=== PATIENT | male | born 1945 | race Caucasian/White ===

== ENCOUNTER 2016-08-19 23:58 | Inpatient (IN) | payer OTHER ==
[~2016-08-19] VITALS: Ht 188 cm; Wt 113.4 kg
--- NOTE | ~2016-08-19 | EKG ---
[address] [place] [address] ELECTROCARDIOGRAM REPORT Name: YASMIN JIMENEZ Room #: 315-P ADM IN M.R.#: [id number] Admission: 08/20/16 Attend Phys: Erum Leiva Discharge: Date of : 43 Report #: [id number] THIS REPORT FOR: //name// [facility] Test Date: 2016-08-21 Test Time: 07:40:12 Pat Name: YASMIN JIMENEZ Department: Room: 315 P Gender: M Development Officer: SHIVA : 1945 Requested By: Hany Posadas Order Number: [id number] MD: Hany Posadas Measurements Intervals [place] Rate: 67 P: 0 MI: 148 QRS: 5 QRSD: 142 T: 66 QT: 491 QTc: 519 Interpretive Statements Atrial fibrillation Poor R-wave progression Nonspecific intraventricular conduction delay Nonspecific T wave abnormality no previous ECGs available for comparison Electronically Signed On 08-22-2016 12:31:14 CDT by Hany Posadas [email or web address] <ELECTRONICALLY SIGNED> By: Hany Posadas MD, [facility] 08/22/16 1231 0740 9 Hany Posadas MD, FACC /EPI
[~2016-08-19 23:58] MED LIST: ADULT LOW DOSE81 MG PO; ALLOPURINOL 30300 M2 PO; ASPIR 8181 MG PO; ATENOLOL 50MG T50 M1 PO; ATENOLOL 50MG T50 MG PO; ATORVASTATIN CA40 MG PO; AUGMENTIN 875875 MG PO; BACTRIM DS TAB1 EACH PO; BAYER CHEWABLE81 MG PO; BETASEPT 4% SU120 M1 TP; BIOTIN-D1 GM MC; CALCIO DEL MAR PO; CALCIUM 600 +1 EAC1 PO; CARAFATE 1 GM TA1 G1 PO; CARVEDILOL3.125 MG PO; CARVEDILOL6.25 MG PO; CLEOCIN HCL150 MG PO; COZAAR 25 MG TA25 M1 PO; COZAAR 50 MG TA50 M1 PO; COZAAR 50 MG TA50 M2 PO; DAPSONE100 MG PO; DOXYCYCLINE 10100 M1 PO; DOXYCYCLINE 10100 MG PO; ELIQUIS2.5 MG PO; ETODOLAC500 MG PO; FERREX 150150 MG PO; FISH OIL 1,001000 M2 PO; FLOMAX0.4 MG PO; FLONASE 0.05%50 MCG NASAL; GENTAMICIN 0.15 CR TRANSDERM; HIBICLENS120 ML TP; HYDROCERIN CREA1 JAR TOP; HYDROCODONE-AP1 EAC6 PO; HYDROCODONE-AP1 EACH PO; HYDROCORTISONE30 G9 RECTAL; IMDUR 30 MG TAB30 M1 PO; ISOSORBIDE DINI30 MG PO; KLOR-CON 1010 MEQ PO; LASIX 20 MG TAB20 MG PO; LIPITOR10 MG PO; LISINOPRIL10 MG PO; LISINOPRIL5 MG PO; MUPIROCIN15 GM TOP; NORCO 10-325 T1 EACH PO; NORCO 5-325 TA1 EACH PO; NORVASC10 MG PO; NYAMYC15 GM TOP; OXYCODONE HCL 55 MG PO; PACERONE 200 M200 M1 PO; PAXIL10 MG PO; PERCOCET PO; POTASSIUM20 PO; PROAIR HFA8.5 GM INH; PROBIOTIC1 EAC1 PO; PROTONIX40 M1 PO; REGLAN 10 MG TA10 MG PO; SAVAYSA60 MG PO; SENNA LAXATIVE8.6 MG PO; TORSEMIDE20 MG PO; TRIAMCINOLONE A80 G2; XARELTO10 MG PO; XOPENEX 0.63 MG/3 M1 INH; ZANTAC 150MG T150 MG PO; ZANTAC300 MG PO; ZOCOR20 MG PO; ZOFRAN ODT4 MG PO
[2016-08-20] MEDS ORDERED: K-DUR10 MEQ PO (00:10)
[2016-08-20] MEDS ORDERED: AMIODARONE HCL400 MG PO (00:10)
[2016-08-20] MEDS ORDERED: NORCO 10-325 T1 EACH PO (00:10)
[2016-08-20] MEDS ORDERED: BUMETANIDE 1 MG1 M1 GT (00:10)
[2016-08-20] MEDS ORDERED: CARVEDILOL6.25 MG PO (00:10)
[2016-08-20] MEDS ORDERED: METOLAZONE 5 MG5 MG PO (00:11)
[2016-08-20] MEDS ORDERED: DEMADEX20 MG PO (00:11)
[2016-08-20 00:51] LABS: ABSOLUTE NEUTROPHILS 5.2 thou/uL (1.4-8.2); BASOPHILS 0.8 % (0.0-2.0); EOSINOPHILS 5.1 % (0.0-3.0); HEMATOCRIT 24.2 % (42.0-52.0); HEMOGLOBIN 7.7 gm/dL (14.0-18.0); LYMPHOCYTES 12.2 % (24.0-44.0); MCH 29.5 pg (26.0-34.0); MCHC 31.7 g/dL (28.0-37.0); MONOCYTES 8.8 % (1.0-8.0); PLATELET COUNT 180 thou/uL (150-400); POLYS 73.1 % (36.0-66.0); RDW 21.1 % (10.5-14.5); WBC 7.1 thou/uL (4.0-11.0)
[2016-08-20 00:57] LABS: MANUAL DIFF NO
[2016-08-20 01:03] LABS: APTT 35.7 Seconds (24.5-32.8); INR 1.2; PROTIME 12.4 Seconds (9.3-11.4)
[2016-08-20 01:13] LABS: POTASSIUM 4.5 mmol/L (3.5-5.1)
[2016-08-20 01:14] LABS: CREATININE 1.5 mg/dL (0.6-1.3)
[2016-08-20 01:15] LABS: ALBUMIN 2.2 g/dL (3.4-5.0); CALCIUM 7.6 mg/dL (8.5-10.1); TOTAL BILIRUBIN 0.5 mg/dL (<0.1-1.0); TOTAL PROTEIN 6.4 g/dL (6.4-8.2)
[2016-08-20 01:21] LABS: DIRECT BILIRUBIN 0.2 mg/dL (<0.1-0.3)
[2016-08-20 02:05] LABS: URINE BILIRUBIN NEGATIVE (Negative); URINE BLOOD 3+ (Negative); URINE COLOR YELLOW; URINE GLUCOSE-RANDOM* NEGATIVE (Negative); URINE KETONES NEGATIVE (Negative); URINE NITRITE NEGATIVE (Negative); URINE PROTEIN (DIPSTICK) NEGATIVE (Negative); URINE UROBILINOGEN 0.2 E.U./dl (0.2-1.0)
[2016-08-20 02:10] LABS: SQUAMOUS 0-3 Few /LPF (0-3)
[2016-08-20 02:11] LABS: BACTERIA 1-9 Few /HPF (None Seen); CRYSTALS None Seen /LPF (None Seen); HYALINE CASTS 0-3 Few /LPF (None Seen); URINE RBC >20 Many /HPF (0-2); URINE WBC 0-5 Rare /HPF (0-5)
[2016-08-21 03:43] LABS: HEMATOCRIT 26.3 % (42.0-52.0); HEMOGLOBIN 8.6 gm/dL (14.0-18.0); MCH 29.3 pg (26.0-34.0); MCHC 32.6 g/dL (28.0-37.0); MCV 89.9 fL (80.0-100.0); RBC 2.93 mil/uL (4.50-6.00); RDW 20.5 % (10.5-14.5); WBC 5.9 thou/uL (4.0-11.0)
[2016-08-21 03:57] LABS: APTT 35.5 Seconds (24.5-32.8); INR 1.2; PROTIME 12.7 Seconds (9.3-11.4)
[2016-08-21 04:00] LABS: ALBUMIN 2.2 g/dL (3.4-5.0); CALCIUM 7.9 mg/dL (8.5-10.1); CREATININE 1.4 mg/dL (0.6-1.3); PHOSPHORUS 3.3 mg/dL (2.5-4.9); POTASSIUM 4.6 mmol/L (3.5-5.1)
[2016-08-22 06:15] LABS: HEMATOCRIT 26.7 % (42.0-52.0); HEMOGLOBIN 8.9 gm/dL (14.0-18.0); MCH 30.3 pg (26.0-34.0); MCHC 33.3 g/dL (28.0-37.0); MCV 90.9 fL (80.0-100.0); RBC 2.94 mil/uL (4.50-6.00); WBC 5.7 thou/uL (4.0-11.0)
[2016-08-22 06:29] LABS: ALBUMIN 2.2 g/dL (3.4-5.0); CALCIUM 7.9 mg/dL (8.5-10.1); CREATININE 1.3 mg/dL (0.6-1.3); PHOSPHORUS 3.5 mg/dL (2.5-4.9)
[2016-08-23 05:44] LABS: ABSOLUTE NEUTROPHILS 4.2 thou/uL (1.4-8.2); BASOPHILS 1.2 % (0.0-2.0); EOSINOPHILS 7.4 % (0.0-3.0); HEMATOCRIT 24.8 % (42.0-52.0); HEMOGLOBIN 8.3 gm/dL (14.0-18.0); LYMPHOCYTES 12.8 % (24.0-44.0); MCH 30.2 pg (26.0-34.0); MCHC 33.4 g/dL (28.0-37.0); MCV 90.3 fL (80.0-100.0); MONOCYTES 8.8 % (1.0-8.0); PLATELET COUNT 172 thou/uL (150-400); POLYS 69.8 % (36.0-66.0); RBC 2.75 mil/uL (4.50-6.00)
[2016-08-23 05:55] LABS: MANUAL DIFF NO
[2016-08-23 06:09] LABS: CALCIUM 7.7 mg/dL (8.5-10.1); CREATININE 1.3 mg/dL (0.6-1.3); POTASSIUM 3.7 mmol/L (3.5-5.1); TOTAL BILIRUBIN 0.5 mg/dL (<0.1-1.0); TOTAL PROTEIN 5.9 g/dL (6.4-8.2)
[2016-08-24] MEDS ORDERED: AUGMENTIN 875875 MG PO (13:38)
[2016-08-24] MEDS ORDERED: MICONAZOLE NITR45 G3 TOP (13:40)
[2016-08-24] MEDS ORDERED: SSD CREAM 1% 5050 GM TOP (13:40)
[2016-08-24 14:11] LABS: HEMATOCRIT 25.5 % (42.0-52.0); HEMOGLOBIN 8.3 gm/dL (14.0-18.0)
== END 2016-08-24 17:09 | DRG 592 ==
LOC: ER 23:58 → EROBS 08-20 02:22 → 3N 08-20 02:22
PROVIDERS: Emergency Medicine; Hospitalist; Internal Medicine; Nurse Practitioner Family
PROC: 30233N1 Transfusion of Nonautologous Red Blood Cells into Peripheral Vein, Percutaneous Approach (ICD-10-PCS; principal; 2016-08-20)
DX: L97.929 Non-pressure chronic ulcer of unspecified part of left lower leg with unspecified severity (principal); E43 Unspecified severe protein-calorie malnutrition; D62 Acute posthemorrhagic anemia; D68.59 Other primary thrombophilia; I13.0 Hypertensive heart and chronic kidney disease with heart failure and stage 1 through stage 4 chronic kidney disease, or unspecified chronic kidney disease; I50.32 Chronic diastolic (congestive) heart failure; N17.9 Acute kidney failure, unspecified; L97.919 Non-pressure chronic ulcer of unspecified part of right lower leg with unspecified severity; I25.10 Atherosclerotic heart disease of native coronary artery without angina pectoris; K59.00 Constipation, unspecified; I95.9 Hypotension, unspecified; I48.91 Unspecified atrial fibrillation; I73.9 Peripheral vascular disease, unspecified; N18.3 Chronic kidney disease, stage 3 (moderate); R31.0 Gross hematuria; L89.622 Pressure ulcer of left heel, stage 2; L89.322 Pressure ulcer of left buttock, stage 2; I87.2 Venous insufficiency (chronic) (peripheral); Z95.5 Presence of coronary angioplasty implant and graft; Z95.1 Presence of aortocoronary bypass graft; Z88.6 Allergy status to analgesic agent; Z79.82 Long term (current) use of aspirin; Z79.899 Other long term (current) drug therapy; Z95.2 Presence of prosthetic heart valve; Z83.3 Family history of diabetes mellitus; Z82.49 Family history of ischemic heart disease and other diseases of the circulatory system; Z82.3 Family history of stroke; Z80.9 Family history of malignant neoplasm, unspecified; Z68.32 Body mass index [BMI] 32.0-32.9, adult
CPT/HCPCS: 10096; 23012

== ENCOUNTER → 2016-10-11 | Outpatient (CLI) | payer OTHER ==
[~2016-10-11] MED LIST changes: +AMIODARONE HCL400 MG PO; +BUMETANIDE 1 MG1 M1 GT; +DEMADEX20 MG PO; +K-DUR10 MEQ PO; +METOLAZONE 5 MG5 MG PO; +MICONAZOLE NITR45 G3 TOP; +SSD CREAM 1% 5050 GM TOP
== END ==
LOC: HYPER 07:10
DX: S81.801A Unspecified open wound, right lower leg, initial encounter (principal); I13.0 Hypertensive heart and chronic kidney disease with heart failure and stage 1 through stage 4 chronic kidney disease, or unspecified chronic kidney disease; N18.9 Chronic kidney disease, unspecified; I50.20 Unspecified systolic (congestive) heart failure; I25.10 Atherosclerotic heart disease of native coronary artery without angina pectoris; L03.115 Cellulitis of right lower limb; I25.5 Ischemic cardiomyopathy; I48.91 Unspecified atrial fibrillation; X58.XXXA Exposure to other specified factors, initial encounter; Y93.89 Activity, other specified; Y92.89 Other specified places as the place of occurrence of the external cause; Y99.8 Other external cause status

== ENCOUNTER → 2017-01-03 | Outpatient (CLI) | payer OTHER ==
[~2017-01-03] VITALS: Ht 188 cm; Wt 101.2 kg
[~2017-01-03] MED LIST changes: +CARVEDILOL12.5 MG PO; +CENTRUM SILVER1 EAC2 PO
--- NOTE | ~2017-01-03 | P ---
[facility] [place] [address] PROCEDURE REPORT Name: YASMIN JIMENEZ Room #: REG [facility]#: [id number] Admission: 01/03/17 Attend Phys: Mt Freed MD Discharge: Date of : 43 Report #: [id number] THIS REPORT FOR: //name// CC: Dr. Sameer AGRAWAL physician/PCP Mt Freed BRIEF HISTORY: The patient is a 71-year-old male who underwent a colonoscopy about a year ago because of bleeding and anemia. A bleeding site was not identified, it was felt the blood was likely coming from the anal canal. However, due to limitations of prep, followup colonoscopy was suggested for colorectal screening. PREOPERATIVE DIAGNOSIS: Average risk screening colonoscopy. POSTOPERATIVE DIAGNOSES: 1. Moderately severe left-sided diverticulosis with few scattered diverticula in the proximal colon. 2. Deformity of ascending colon. MEDICATIONS: Deep sedation with propofol per anesthesia. SPECIMEN: None. ESTIMATED BLOOD LOSS: None. PROCEDURE: Colonoscopy to cecum and terminal ileum. FINDINGS: Prior to propofol sedation, procedure of colonoscopy discussed with the patient as well as potential risks, benefits, and complications. He indicates he understands and desires to proceed. With the patient in left lateral decubitus position, digital examination was completed, which revealed no abnormalities. Subsequently, the fromAtoB video colonoscope was introduced in the rectum, advanced under direct vision to the cecum. Done with minimal difficulty. The cecum was identified by the ileocecal valve and the appendiceal orifice. Interestingly, the mouth of the ileocecal valve was easily visible from the ascending colon. It almost had an eccentric appearance. It was not obstructed. The scope was advanced easily into the distal terminal ileum and normal villous pattern was identified. Also, the appendiceal orifice was well seen. At that point, the scope was withdrawn and careful circumferential views obtained. Upon slow withdrawal of the scope, the prep was noted to be excellent. The mucosa was within normal limits, normal vascular pattern, normal light reflex. As we withdrew the scope, there were noted to be diverticular disease in the ascending colon, there was also noted to be scarring thought to be related to previous inflammatory process, although active inflammatory disease was not seen today. It is noted he does have [facility] [address] [place] [address] PROCEDURE REPORT Name: YASMIN JIMENEZ Room #: REG [facility].#: [id number] Admission: 01/03/17 Attend Phys: Mt Freed MD Discharge: Date of : 43 Report #: [id number] vascular disease and I would wonder if he had previous . As we withdrew the scope, the prep was normal throughout the remainder of the colon, inflammatory changes were not seen elsewhere in the colon. In the left colon, in particular the sigmoid colon, there was moderately severe diverticular disease without endoscopic evidence of diverticulitis. Scope was withdrawn in the rectum. Upon retroflexion, no abnormalities were seen. Scope was withdrawn. The patient tolerated the procedure well. CONDITION OF THE PATIENT UPON DISCHARGE: Following procedure, the patient drowsy, aroused, conversant and will be discharged home when fully ambulatory. INSTRUCTIONS TO THE PATIENT AND FAMILY AT THE TIME OF DISCHARGE: I do not see evidence of neoplastic disease to consider the patient average risk. Suggest followup colonoscopy in 10 years and certainly would base that on his clinical health at that point in time and suggest high fiber diet for the diverticular disease. He will return to the care of Dr. Craft and return to see me as needed. Withdrawal time from the cecum was 15 minutes. <ELECTRONICALLY SIGNED> By: Mt Freed MD 01/04/17 0744 1001 1722 Mt Freed MD /nt
== END ==
LOC: GI 07:11
DX: Z12.11 Encounter for screening for malignant neoplasm of colon (principal); K57.30 Diverticulosis of large intestine without perforation or abscess without bleeding; K29.70 Gastritis, unspecified, without bleeding; I50.21 Acute systolic (congestive) heart failure; I25.10 Atherosclerotic heart disease of native coronary artery without angina pectoris; I48.91 Unspecified atrial fibrillation; N19 Unspecified kidney failure; Z88.5 Allergy status to narcotic agent; Z79.899 Other long term (current) drug therapy
CPT/HCPCS: 62110; 62900

== ENCOUNTER → 2017-04-25 | Outpatient (CLI) | payer OTHER | LOC: HYPER 07:37 | DX: L97.212 Non-pressure chronic ulcer of right calf with fat layer exposed (principal); I48.91 Unspecified atrial fibrillation; I25.10 Atherosclerotic heart disease of native coronary artery without angina pectoris; N18.9 Chronic kidney disease, unspecified; Z95.1 Presence of aortocoronary bypass graft ==

== ENCOUNTER → 2017-05-03 | Outpatient (CLI) | payer OTHER | LOC: HYPER 06:46 | DX: L97.212 Non-pressure chronic ulcer of right calf with fat layer exposed (principal); I48.91 Unspecified atrial fibrillation; I25.10 Atherosclerotic heart disease of native coronary artery without angina pectoris; Z95.1 Presence of aortocoronary bypass graft ==

== ENCOUNTER → 2017-06-15 | Outpatient (CLI) | payer OTHER | LOC: HYPER 06:54 | DX: L97.212 Non-pressure chronic ulcer of right calf with fat layer exposed (principal); R60.0 Localized edema; I48.91 Unspecified atrial fibrillation; I25.10 Atherosclerotic heart disease of native coronary artery without angina pectoris; Z95.1 Presence of aortocoronary bypass graft ==

== ENCOUNTER → 2017-07-13 | Outpatient (CLI) | payer OTHER | LOC: HYPER 06:48 | DX: S80.861D Insect bite (nonvenomous), right lower leg, subsequent encounter (principal); L97.212 Non-pressure chronic ulcer of right calf with fat layer exposed; R60.0 Localized edema; I48.91 Unspecified atrial fibrillation; I25.10 Atherosclerotic heart disease of native coronary artery without angina pectoris; Z95.1 Presence of aortocoronary bypass graft; X58.XXXD Exposure to other specified factors, subsequent encounter ==

== ENCOUNTER → 2017-08-08 | Outpatient (CLI) | payer OTHER | LOC: HYPER 08-04 08:37 | DX: L97.212 Non-pressure chronic ulcer of right calf with fat layer exposed (principal); S80.861D Insect bite (nonvenomous), right lower leg, subsequent encounter; I48.91 Unspecified atrial fibrillation; I25.10 Atherosclerotic heart disease of native coronary artery without angina pectoris; Z95.0 Presence of cardiac pacemaker; W57.XXXD Bitten or stung by nonvenomous insect and other nonvenomous arthropods, subsequent encounter ==

== ENCOUNTER → 2017-08-24 | Outpatient (CLI) | payer OTHER | LOC: HYPER 06:48 | DX: L97.212 Non-pressure chronic ulcer of right calf with fat layer exposed (principal); S80.872D Other superficial bite, left lower leg, subsequent encounter; I48.91 Unspecified atrial fibrillation; I25.10 Atherosclerotic heart disease of native coronary artery without angina pectoris; Z95.1 Presence of aortocoronary bypass graft; W57.XXXD Bitten or stung by nonvenomous insect and other nonvenomous arthropods, subsequent encounter ==

== ENCOUNTER → 2017-09-07 | Outpatient (CLI) | payer OTHER | LOC: HYPER 07:06 | DX: L97.212 Non-pressure chronic ulcer of right calf with fat layer exposed (principal); S80.861D Insect bite (nonvenomous), right lower leg, subsequent encounter; S81.802D Unspecified open wound, left lower leg, subsequent encounter; I48.91 Unspecified atrial fibrillation; I25.10 Atherosclerotic heart disease of native coronary artery without angina pectoris; Z95.1 Presence of aortocoronary bypass graft; X58.XXXD Exposure to other specified factors, subsequent encounter ==

== ENCOUNTER → 2017-09-21 | Outpatient (CLI) | payer OTHER | LOC: HYPER 06:44 | DX: S81.802D Unspecified open wound, left lower leg, subsequent encounter (principal); S80.861D Insect bite (nonvenomous), right lower leg, subsequent encounter; L97.212 Non-pressure chronic ulcer of right calf with fat layer exposed; R60.0 Localized edema; I48.91 Unspecified atrial fibrillation; I25.10 Atherosclerotic heart disease of native coronary artery without angina pectoris; Z95.1 Presence of aortocoronary bypass graft; X58.XXXD Exposure to other specified factors, subsequent encounter ==

== ENCOUNTER → 2017-10-19 | Outpatient (CLI) | payer OTHER | LOC: HYPER 06:51 | DX: L97.212 Non-pressure chronic ulcer of right calf with fat layer exposed (principal); S80.861D Insect bite (nonvenomous), right lower leg, subsequent encounter; L03.116 Cellulitis of left lower limb; I25.10 Atherosclerotic heart disease of native coronary artery without angina pectoris; I48.91 Unspecified atrial fibrillation; Z95.1 Presence of aortocoronary bypass graft; W57.XXXD Bitten or stung by nonvenomous insect and other nonvenomous arthropods, subsequent encounter ==

== ENCOUNTER → 2017-11-09 | Outpatient (CLI) | payer OTHER | LOC: HYPER 07:04 | DX: S80.861D Insect bite (nonvenomous), right lower leg, subsequent encounter (principal); L97.212 Non-pressure chronic ulcer of right calf with fat layer exposed; I48.91 Unspecified atrial fibrillation; I25.10 Atherosclerotic heart disease of native coronary artery without angina pectoris; Z95.1 Presence of aortocoronary bypass graft; W57.XXXD Bitten or stung by nonvenomous insect and other nonvenomous arthropods, subsequent encounter ==

== ENCOUNTER → 2017-11-30 | Outpatient (CLI) | payer OTHER | LOC: HYPER 06:49 | DX: L97.212 Non-pressure chronic ulcer of right calf with fat layer exposed (principal); I48.91 Unspecified atrial fibrillation; I25.10 Atherosclerotic heart disease of native coronary artery without angina pectoris; Z95.1 Presence of aortocoronary bypass graft ==

== ENCOUNTER → 2017-12-07 | Outpatient (CLI) | payer OTHER ==
--- NOTE | ~2017-12-07 | 2DMMODE ---
[facility] [address] [place] [address] 2 D/M-MODE ECHOCARDIOGRAM Name: TONYYASMIN THOMAS Room #: REG [facility]#: [id number] Admission: 12/07/17 Attend Phys: Missael Cooney Discharge: Date of : 43 Date of Service: 12/07/17 1412 Report #: [id number] THIS REPORT FOR: //name// APPROVED REPORT Study performed: 12/07/2017 12:32:35 EXAM: Comprehensive 2D, Doppler, and color-flow Echocardiogram Patient Location: Echo lab Status: routine BSA: 2.37 HR: 75 bpm BP: 115/78 mmHg Other Information Study Quality: Good Indications Atrial Fibrillation [place]: MVR and ABR 2D Dimensions LVEF(%): 52.75 (>50%) IVSd: 14.68 (7-11mm) LVOT Diam: 22.42 (18-24mm) LVDd: 56.15 mm PWd: 14.68 (7-11mm) Ascending Ao: 36.40 (22-36mm) LVDs: 40.73 (25-40mm) Aortic Root: 32.11 mm IVC: 3.20 mm Cali's LVEF: 52.75 % Aortic Valve AoV Peak Gen.: 2.15 m/s AO Peak Gr.: 18.57 mmHg LVOT Max P.87 mmHg AO Mean Gr.: 8.22 mmHg LVOT Mean P.26 mmHg AO V2 Mean: 1.30 m/s LVOT Max V: 0.85 m/s AO V2 VTI: 40.77 cm LVOT Mean V: 0.48 m/s SAM (VTI): 1.37 cm2 LVOT V1 VTI: 14.17 cm SAM Vmax: 1.55 cm2 SV (LVOT): 55.91 mL Mitral Valve MV Peak Gr.: 20.25 mmHg MV Mean Gr.: 8.39 mmHg MV Max Gen.: 2.25 m/s [facility] [address] [employer] [place] [address] 2 D/M-MODE ECHOCARDIOGRAM Name: YASMIN JIMENEZ Room #: REG [facility].#: [id number] Admission: 12/07/17 Attend Phys: Missael Cooney Discharge: Date of : 43 Date of Service: 12/07/17 1412 Report #: [id number] MV Mean Gen.: 1.31 m/s MV VTI: 533.43 mm MVA VTI: 104.81 mm2 MV PHT: 107.79 ms MVA (PHT): 2.04 cm2 Pulmonary Valve PV Peak Gen.: 0.66 m/s PV Peak Gr.: 1.77 mmHg Tricuspid Valve TR Peak Gen.: 3.05 m/s RAP Estimate: 15.00 mmHg TR Peak Gr.: 37.29 mmHg PA Pressure: 52.00 mmHg Left Ventricle The left ventricle is normal size. There is normal left ventricular wall thickness. The left ventricular systolic function is normal. LVEF is 50%. This study is not technically sufficient to allow evaluation of the LV diastolic function due to atrial fibrillation. Right Ventricle The right ventricle is normal size. The right ventricular systolic function is normal. Pacemaker lead is present in the right ventricle. Atria Left atrium is dilated. Right atrium is dilated. Pacemaker lead is present in the right atrium. Aortic Valve [facility] 25mm. Bioprosthetic aortic valve is present. Mild aortic regurgitation. There is no aortic valvular stenosis. Mitral Valve [facility] 33mm. Bioprosthesis valve Mild mitral regurgitation. Mildly mitral stenosis. Tricuspid Valve The tricuspid valve is normal in structure. Doppler gradients for this tricuspid prosthetic valve are normal. There ismoderate to severe tricuspid regurgitation. There is no pulmonary hypertension. Pulmonic Valve The pulmonary valve is normal in structure. Trace pulmonic regurgitation. [address] [address] 2 D/M-MODE ECHOCARDIOGRAM Name: TONYYASMIN THOMAS Room #: REG [facility]#: [id number] Admission: 12/07/17 Attend Phys: Missael Cooney Discharge: Date of : 43 Date of Service: 12/07/17 1412 Report #: [id number] Great Vessels The aortic root is normal in size. The ascending aorta is normal in size. The inferior vena cava is dilated with no inspiratory collapse. Pericardium There is no pericardial effusion. <Conclusion> The left ventricle is normal size. LVEF is 50%. Pacemaker lead is present in the right ventricle. Left atrium is dilated. Right atrium is dilated. Pacemaker lead is present in the right atrium. [facility] 25mm. Bioprosthetic aortic valve is present. Mild aortic regurgitation. [facility] 33mm. Bioprosthesis valve Mild mitral regurgitation. Mildly mitral stenosis. The tricuspid valve is normal in structure. Doppler gradients for this tricuspid prosthetic valve are normal. There ismoderate to severe tricuspid regurgitation. There is no pulmonary hypertension. The pulmonary valve is normal in structure. There is no pericardial effusion. <ELECTRONICALLY SIGNED> By: Missael Simons MD 12/07/17 1412 141 141 Missael Simons MD /INF
== END ==
LOC: CV 09:15
DX: I08.1 Rheumatic disorders of both mitral and tricuspid valves (principal); I48.91 Unspecified atrial fibrillation; I05.0 Rheumatic mitral stenosis; I50.9 Heart failure, unspecified